=== PATIENT | female | born 1990 | race American Indian/Alaskan Native ===

== ENCOUNTER 2016-12-17 11:46 | Emergency (ER) | payer SELFPAY ==
[2016-12-17 12:20] VITALS: BP 130/72
[2016-12-17] MEDS ORDERED: XYLOCAINE 1%/ EPI 1:100,000 INFILTRATI ONE (12:37)
[2016-12-17] MEDS ORDERED: TRIPLE ANTIBIOTIC TP ONE ×2 (13:15→13:41)
--- NOTE | 2016-12-17 13:16 | Emergency Department Report ---
- General Chief Complaint: Wound/Laceration Stated Complaint: LAC TO LEFT HAND Time Seen by Provider: 12/17/16 12:30 Source: patient Mode of arrival: Ambulatory Limitations: No Limitations - History of Present Illness Initial Comments: Patient comes into the ER today with complaints of a laceration to her left hand while at work today. 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 Patient is unsure of her last tetanus shot that she states she does not want another one today. Patient denies any other injuries. -: hour(s) (1) ED Review of Systems ROS: Stated complaint: LAC TO LEFT HAND Other details as noted in HPI Constitutional: denies: chills, fever Eyes: denies: eye pain, eye discharge, vision change ENT: denies: ear pain, throat pain Respiratory: denies: cough, shortness of breath, wheezing Cardiovascular: denies: chest pain, palpitations Endocrine: no symptoms reported Gastrointestinal: denies: abdominal pain, nausea, diarrhea Genitourinary: denies: urgency, dysuria, discharge Musculoskeletal: arthralgia (left fifth MCP joint). denies: back pain, joint swelling Skin: denies: rash, lesions Neurological: denies: headache, weakness, numbness, paresthesias Psychiatric: denies: anxiety, depression Hematological/Lymphatic: denies: easy bleeding, easy bruising ED Past Medical Hx - Past Medical History Previous Medical History?: Yes Hx Asthma: Yes - Surgical History Past Surgical History?: No - Social History Smoking Status: Never Smoker Substance Use Type: None ED Physical Exam - General Limitations: No Limitations General appearance: alert, in no apparent distress - Head Head exam: Present: atraumatic, normocephalic - Eye Eye exam: Present: normal appearance - ENT ENT exam: Present: mucous membranes moist, normal external ear exam - Neck Neck exam: Present: normal inspection - Respiratory Respiratory exam: Present: normal lung sounds bilaterally. Absent: respiratory distress - Cardiovascular Cardiovascular Exam: Present: regular rate, normal rhythm. Absent: systolic murmur, diastolic murmur, rubs, gallop - GI/Abdominal GI/Abdominal exam: Present: soft, normal bowel sounds - Extremities Exam Extremities exam: Present: full ROM, tenderness, normal capillary refill, other (1.5 cm linear subcutaneous laceration noted to left posterior MCP joint. ). Absent: joint swelling - Back Exam Back exam: Present: normal inspection - Neurological Exam Neurological exam: Present: alert, oriented X3, CN II-XII intact, normal gait, reflexes normal. Absent: motor sensory deficit - Psychiatric Psychiatric exam: Present: normal affect, normal mood - Skin Skin exam: Present: warm, dry, intact, normal color. Absent: rash ED Course Vital Signs 12/17/16 12:16 Temperature 98.2 F Pulse Rate 51 L Blood Pressure 130/72 O2 Sat by Pulse 100 Oximetry - Laceration /Wound Repair Left Posterior Medial Hand Wound Location: upper extremity (left posterior MCP joint) Wound Length (cm): 2 Wound's Depth, Shape: linear Wound Explored: clean Irrigated w/ Saline (ccs): 30 Betadine Prep?: No (cleaned wound with surgical scrub containing chlorhexidine) Anesthesia: Lidocaine w/ Epi Volume Anesthetic (ccs): 4 Wound Repaired With: sutures Suture Size/Type: 4:0, proline Number of Sutures: 3 Layer Closure?: No Sterile Dressing Applied?: Yes Progress: Patient tolerated procedure very well without any complications. ED Medical Decision Making - Medical Decision Making Laceration repaired in the ER without any complications. Patient tolerated procedure very well. Patient was offered and encouraged to get updated to her tetanus immunization today. Patient refused tetanus immunization despite risks explained. I have instructed patient on proper care of her wound and injury. Patient is to return to the ER in the next 10 days for suture removal. Wound was bandaged here in the ER and patient is stable for discharge. Patient is neurovascularly intact after laceration repair. Critical care attestation.: If time is entered above; I have spent that time in minutes in the direct care of this critically ill patient, excluding procedure time. ED Disposition Clinical Impression: Laceration of left hand Disposition: DISCHARGED TO HOME OR SELFCARE Is pt being admited?: No Does the pt Need Aspirin: No Condition: Good Instructions: Laceration (ED) Referrals: PRIMARY CARE, [Primary Care Provider] - 3-5 Days [facility] [place], emergency Department [Other] - 12/27/16 (For suture removal) Forms: Work/School Release Form(ED) Time of Disposition: 13:22
== END 2016-12-17 13:30 | disposition home or self-care (01) ==
LOC: ED 11:46
DX: S61.412A Laceration without foreign body of left hand, initial encounter (principal); J45.909 Unspecified asthma, uncomplicated; W22.8XXA Striking against or struck by other objects, initial encounter; Y93.G1 Activity, food preparation and clean up; Y99.8 Other external cause status; Y92.89 Other specified places as the place of occurrence of the external cause
CPT/HCPCS: A6250